=== PATIENT | male | born 1945 | race Caucasian/White ===

== ENCOUNTER 2022-06-19 13:28 | Inpatient (IN) | payer OTHER ==
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
[2022-06-20] MEDS ORDERED: HYDROCODONE/APAP 5/325 MG TAB PO PRN (21:51)
[2022-06-20] MEDS ORDERED: POLYETHYL GLY 3350 17 GM/DOSE PO PRN (21:51)
[2022-06-20] MEDS ORDERED: MELATONIN 3 MG TABLET PO PRN (21:57)
[2022-06-20] MEDS ORDERED: DOCUSATE NA/SENNA CONC 1 TAB PO PRN (21:57)
[2022-06-20] MEDS ORDERED: GLUCAGON 1 MG/VIAL IM PRN (21:58)
[2022-06-20] MEDS ORDERED: D50W 25 GM/50 ML SYRINGE IV PRN (21:58)
[2022-06-20] MEDS ORDERED: D10W 125 ML IV PRN (22:06)
[2022-06-21] MEDS: ACETAMINOPHEN 325 MG TABLET PO PRN (03:46)
[2022-06-21 04:08] LABS: Urine Bilirubin Negative (Negative); Urine Blood Negative (Negative); Urine Clarity Clear (Clear); Urine Color Yellow (Yellow); Urine Glucose Negative (Negative); Urine Protein Negative (Negative); Urine Urobilinogen 0.2 mg/dL (0.2-1.0); Urine pH 5.5 (5.0-7.0)
[2022-06-21 04:43] LABS: Urine Bacteria >50 /HPF (<20); Urine RBC <5 /HPF (None Seen)
[2022-06-21 06:58] LABS: Absolute Lymphocytes (CBC) 1.5 K/uL (0.7-4.9); Hematocrit 26.3 % (39.6-49.0); Lymphocytes % 16.9 % (15.3-44.8); MCV 82.7 fL (80-100); MPV 7.6 fL (7.6-11.3); RBC Red Blood Cell Count 3.18 M/uL (4.33-5.43)
[2022-06-21 07:15] LABS: Albumin 1.6 g/dL (3.4-5.0); Magnesium 2.3 mg/dL (1.8-2.4); Potassium 4.7 mmol/L (3.5-5.1); Prealbumin 11.9 mg/dL (20-40)
[2022-06-21] MEDS: INSULIN -REGULAR HUMAN 50 UNIT/0.5 ML ML SQ SCH ×4 (07:30→20:40)
[2022-06-21] MEDS: FUROSEMIDE 40 MG TABLET PO SCH (08:54)
[2022-06-21] MEDS: INSULIN GLARGINE 100 UNIT/ML SQ SCH (08:55)
[2022-06-21] MEDS: FINASTERIDE 5 MG TAB PO SCH (08:55)
[2022-06-21] MEDS: LOSARTAN POTASSIUM 50 MG TABLET PO SCH (08:55)
[2022-06-21] MEDS: hydroCHLOROthiazide 25 MG TAB PO SCH (08:55)
--- NOTE | 2022-06-21 09:51 | P.RH.PN ---
Estimated Length of Stay: 11 Expected Discharge Date: 07/01/22 Discharge Disposition Plan: Home Family Support: Yes Vital Signs: Last Vital Signs Temp 97.9 F 06/21/22 07:55 Pulse 69 06/21/22 08:55 Resp 15 06/21/22 07:55 BP 130/57 L 06/21/22 08:55 Pulse Ox 97 06/21/22 07:55 Laboratory: Laboratory Last Values WBC 8.8 K/uL (4.3-10.9) 06/21/22 06:34 RBC 3.18 M/uL (4.33-5.43) L 06/21/22 06:34 Hgb 9.0 g/dL (13.6-17.9) L 06/21/22 06:34 Hct 26.3 % (39.6-49.0) L 06/21/22 06:34 MCV 82.7 fL (80-100) 06/21/22 06:34 MCH 28.5 pg (27.0-35.0) 06/21/22 06:34 MCHC 34.4 g/dL (32.0-36.0) 06/21/22 06:34 RDW 14.1 % (12.1-15.2) 06/21/22 06:34 Plt Count 333 K/uL (152-406) 06/21/22 06:34 MPV 7.6 fL (7.6-11.3) 06/21/22 06:34 Neutrophils % 72.8 % (41.7-73.7) 06/21/22 06:34 Lymphocytes % 16.9 % (15.3-44.8) 06/21/22 06:34 Monocytes % 7.3 % (3.3-12.3) 06/21/22 06:34 Eosinophils % 2.3 % (0-4.4) 06/21/22 06:34 Basophils % 0.7 % (0-1.3) 06/21/22 06:34 Absolute Neutrophils 6.4 K/uL (1.8-8.0) 06/21/22 06:34 Absolute Lymphocytes 1.5 K/uL (0.7-4.9) 06/21/22 06:34 Absolute Monocytes 0.6 K/uL (0.1-1.3) 06/21/22 06:34 Absolute Eosinophils 0.2 K/uL (0-0.5) 06/21/22 06:34 Absolute Basophils 0.1 K/uL (0-0.5) 06/21/22 06:34 Sodium 138 mmol/L (136-145) 06/21/22 06:34 Potassium 4.7 mmol/L (3.5-5.1) 06/21/22 06:34 Chloride 104 mmol/L (98-107) 06/21/22 06:34 Carbon Dioxide 32 mmol/L (21-32) 06/21/22 06:34 Anion Gap 6.7 mEq/L (5.0-15.0) 06/21/22 06:34 BUN 45 mg/dL (7-18) H 06/21/22 06:34 Creatinine 1.07 mg/dL (0.55-1.3) 06/21/22 06:34 Est GFR (CKD-EPI) 71 ml/min (=/>90) L 06/21/22 06:34 Glucose 142 mg/dL (74-106) H 06/21/22 06:34 POC Glucose 137 mg/dL (65-120) H 06/21/22 07:09 Calcium 8.1 mg/dL (8.5-10.1) L 06/21/22 06:34 Magnesium 2.3 mg/dL (1.8-2.4) 06/21/22 06:34 Albumin 1.6 g/dL (3.4-5.0) L 06/21/22 06:34 Prealbumin 11.9 mg/dL (20-40) L 06/21/22 06:34 Urine Color Yellow (Yellow) 06/21/22 04:05 Urine Clarity Clear (Clear) 06/21/22 04:05 Urine pH 5.5 (5.0-7.0) 06/21/22 04:05 Ur Specific [place] 1.010 (1.005-1.030) 06/21/22 04:05 Glucose (UA)(Auto) Negative (Negative) 06/21/22 04:05 Urine Ketones Negative (Negative) 06/21/22 04:05 Urine Blood Negative (Negative) 06/21/22 04:05 Urine Nitrite Positive (Negative) H 06/21/22 04:05 Urine Bilirubin Negative (Negative) 06/21/22 04:05 Urine Urobilinogen 0.2 mg/dL (0.2-1.0) 06/21/22 04:05 Ur Leukocyte Esterase Negative (Negative) 06/21/22 04:05 Urine RBC <5 /HPF (None Seen) 06/21/22 04:05 Urine Red Cell Clumps Cancelled 06/20/22 22:25 Urine WBC <5 /HPF (<5) 06/21/22 04:05 Urine WBC Clumps Cancelled 06/20/22 22:25 Ur Squamous Epith Cells <5 /HPF (None Seen) 06/21/22 04:05 U Non-Squamous Epi Cells Cancelled 06/20/22 22:25 Ur Transition Epith Cell Cancelled 06/20/22 22:25 Ur Renal Epithelial Cell Cancelled 06/20/22 22:25 Calcium Carbonate Cryst Cancelled 06/20/22 22:25 Calcium Oxalate Crystal Cancelled 06/20/22 22:25 Leucine Crystals Cancelled 06/20/22 22:25 Cystine Crystals Cancelled 06/20/22 22:25 Uric Acid Crystals Cancelled 06/20/22 22:25 Triple Phos Crystals Cancelled 06/20/22 22:25 Tyrosine Crystals Cancelled 06/20/22 22:25 Unidentified Crystals Cancelled 06/20/22 22:25 Amorphous Crystals Cancelled 06/20/22 22:25 Urine Bacteria >50 /HPF (<20) H 06/21/22 04:05 Hyaline Casts Cancelled 06/20/22 22:25 Granular Casts Cancelled 06/20/22 22:25 Waxy Casts Cancelled 06/20/22 22:25 RBC Casts Cancelled 06/20/22 22:25 WBC Casts Cancelled 06/20/22 22:25 Urine Mucus Cancelled 06/20/22 22:25 Urine Trichomonas Cancelled 06/20/22 22:25 Ur Yeast w Hyphae Cancelled 06/20/22 22:25 Urine Yeast (Budding) Cancelled 06/20/22 22:25 Urine Sperm Cancelled 06/20/22 22:25 Ur Oval Fat Bodies Cancelled 06/20/22 22:25 Urine Total Protein Negative (Negative) 06/21/22 04:05 Urine Ascorbic Acid Cancelled 06/20/22 22:25 Urine Fat Cancelled 06/20/22 22:25 SARS-CoV-2 Rap RNA(RT-PCR) Negative (NEGATIVE) 06/20/22 21:45 Weight: 200 lb Wound Present: Yes Negative Pressure Wound Therapy Present: No Physician Update: Moderate assistance with shower, poor balance with no sensation in his feet and hands. Will encourage excellent blood sugar control. 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 Please see the Rehabilitation Signature page for all necessary signatures.
[2022-06-21] MEDS: ENOXAPARIN 40 MG/0.4 ML SQ SCH (10:41)
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
[2022-06-21] MEDS: GABAPENTIN 300 MG CAP PO SCH (19:21)
[2022-06-21] MEDS: ATORVASTATIN 40 MG TAB PO SCH (19:21)
[2022-06-21] MEDS: AMINO ACIDS/PROTEIN HYDROLYS 30 ML LIQUID.PKT PO SCH (19:21)
[2022-06-22] MEDS: ENOXAPARIN 40 MG/0.4 ML SQ SCH (07:01)
[2022-06-22] MEDS: INSULIN -REGULAR HUMAN 50 UNIT/0.5 ML ML SQ SCH ×4 (07:01→20:21)
[2022-06-22] MEDS: FUROSEMIDE 40 MG TABLET PO SCH (07:54)
[2022-06-22] MEDS: AMINO ACIDS/PROTEIN HYDROLYS 30 ML LIQUID.PKT PO SCH ×2 (07:55→20:00)
[2022-06-22] MEDS: FINASTERIDE 5 MG TAB PO SCH (07:55)
[2022-06-22] MEDS: hydroCHLOROthiazide 25 MG TAB PO SCH ×2 (08:00→09:37)
[2022-06-22] MEDS: LOSARTAN POTASSIUM 50 MG TABLET PO SCH ×3 (08:00→20:21)
[2022-06-22] MEDS: INSULIN GLARGINE 100 UNIT/ML SQ SCH (09:38)
[2022-06-22] MEDS: FE SULF/FA/VIT B COMP & C TAB PO SCH (09:38)
[2022-06-22] MEDS: FERROUS SULFATE 325 MG TAB PO SCH (09:38)
[2022-06-22] MEDS: GABAPENTIN 300 MG CAP PO SCH (20:20)
[2022-06-22] MEDS: ATORVASTATIN 40 MG TAB PO SCH (20:21)
[2022-06-23 06:16] LABS: Absolute Lymphocytes (CBC) 1.3 K/uL (0.7-4.9); Hematocrit 25.1 % (39.6-49.0); Lymphocytes % 14.9 % (15.3-44.8); MCV 83.5 fL (80-100); MPV 7.6 fL (7.6-11.3); RBC Red Blood Cell Count 3.01 M/uL (4.33-5.43)
[2022-06-23] MEDS: INSULIN -REGULAR HUMAN 50 UNIT/0.5 ML ML SQ SCH ×4 (07:30→20:31)
[2022-06-23] MEDS: ENOXAPARIN 40 MG/0.4 ML SQ SCH (07:44)
[2022-06-23] MEDS: AMINO ACIDS/PROTEIN HYDROLYS 30 ML LIQUID.PKT PO SCH ×2 (08:00→20:00)
[2022-06-23] MEDS: INSULIN GLARGINE 100 UNIT/ML SQ SCH ×2 (08:00→12:02)
[2022-06-23] MEDS: FE SULF/FA/VIT B COMP & C TAB PO SCH (08:57)
[2022-06-23] MEDS: FINASTERIDE 5 MG TAB PO SCH (08:57)
[2022-06-23] MEDS: FERROUS SULFATE 325 MG TAB PO SCH (08:57)
[2022-06-23] MEDS: LOSARTAN POTASSIUM 50 MG TABLET PO SCH ×2 (08:57→20:26)
[2022-06-23] MEDS: FUROSEMIDE 40 MG TABLET PO SCH (08:58)
[2022-06-23] MEDS: GABAPENTIN 300 MG CAP PO SCH (20:25)
[2022-06-23] MEDS: ATORVASTATIN 40 MG TAB PO SCH (20:26)
[2022-06-23] MEDS: ACETAMINOPHEN 325 MG TABLET PO PRN (23:06)
[2022-06-24] MEDS: INSULIN -REGULAR HUMAN 50 UNIT/0.5 ML ML SQ SCH ×4 (07:30→20:07)
[2022-06-24] MEDS: AMINO ACIDS/PROTEIN HYDROLYS 30 ML LIQUID.PKT PO SCH ×2 (08:00→20:00)
[2022-06-24] MEDS: FE SULF/FA/VIT B COMP & C TAB PO SCH (08:25)
[2022-06-24] MEDS: FUROSEMIDE 40 MG TABLET PO SCH (08:25)
[2022-06-24] MEDS: INSULIN GLARGINE 100 UNIT/ML SQ SCH (08:25)
[2022-06-24] MEDS: ENOXAPARIN 40 MG/0.4 ML SQ SCH (08:25)
[2022-06-24] MEDS: LOSARTAN POTASSIUM 50 MG TABLET PO SCH ×2 (08:26→20:06)
[2022-06-24] MEDS: FERROUS SULFATE 325 MG TAB PO SCH (08:26)
[2022-06-24] MEDS: FINASTERIDE 5 MG TAB PO SCH (08:26)
[2022-06-24 10:38] LABS: Absolute Lymphocytes (CBC) 1.1 K/uL (0.7-4.9); Hematocrit 26.4 % (39.6-49.0); Lymphocytes % 10.1 % (15.3-44.8); MCV 82.9 fL (80-100); MPV 7.1 fL (7.6-11.3); RBC Red Blood Cell Count 3.19 M/uL (4.33-5.43)
[2022-06-24 10:57] LABS: Potassium 3.8 mmol/L (3.5-5.1)
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
[2022-06-24] MEDS: CRANBERRY FRUIT EXTRACT 200 MG CAP PO SCH (20:06)
[2022-06-24] MEDS: ATORVASTATIN 40 MG TAB PO SCH (20:07)
[2022-06-24] MEDS: GABAPENTIN 300 MG CAP PO SCH (20:07)
[2022-06-24] MEDS: JUVEN PACKET PO SCH (20:08)
[2022-06-24] MEDS: GLUCERNA SHAKE 237 ML CAN PO SCH (20:08)
[2022-06-25] MEDS: INSULIN -REGULAR HUMAN 50 UNIT/0.5 ML ML SQ SCH ×4 (07:30→21:30)
[2022-06-25] MEDS: ENOXAPARIN 40 MG/0.4 ML SQ SCH (07:31)
[2022-06-25] MEDS: LOSARTAN POTASSIUM 50 MG TABLET PO SCH ×3 (08:00→21:32)
[2022-06-25] MEDS: FERROUS SULFATE 325 MG TAB PO SCH (08:03)
[2022-06-25] MEDS: INSULIN GLARGINE 100 UNIT/ML SQ SCH (08:03)
[2022-06-25] MEDS: FINASTERIDE 5 MG TAB PO SCH (08:03)
[2022-06-25] MEDS: FUROSEMIDE 40 MG TABLET PO SCH (08:03)
[2022-06-25] MEDS: GLUCERNA SHAKE 237 ML CAN PO SCH ×2 (08:04→21:40)
[2022-06-25] MEDS: JUVEN PACKET PO SCH ×2 (08:04→21:41)
[2022-06-25] MEDS: FE SULF/FA/VIT B COMP & C TAB PO SCH (08:04)
[2022-06-25] MEDS: CRANBERRY FRUIT EXTRACT 200 MG CAP PO SCH ×2 (08:04→21:33)
[2022-06-25] MEDS: AMINO ACIDS/PROTEIN HYDROLYS 30 ML LIQUID.PKT PO SCH ×2 (09:30→20:00)
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
[2022-06-25] MEDS: ATORVASTATIN 40 MG TAB PO SCH (21:32)
[2022-06-25] MEDS: GABAPENTIN 300 MG CAP PO SCH (21:32)
[2022-06-25] MEDS: HYDROCODONE/APAP 5/325 MG TAB PO PRN (23:36)
[2022-06-26 04:53] LABS: Absolute Lymphocytes (CBC) 1.5 K/uL (0.7-4.9); Hematocrit 26.6 % (39.6-49.0); Lymphocytes % 14.4 % (15.3-44.8); MCV 83.4 fL (80-100); MPV 7.5 fL (7.6-11.3); RBC Red Blood Cell Count 3.19 M/uL (4.33-5.43)
[2022-06-26 05:14] LABS: Albumin 1.7 g/dL (3.4-5.0); Potassium 4.1 mmol/L (3.5-5.1); Prealbumin 9.3 mg/dL (20-40)
[2022-06-26] MEDS: INSULIN -REGULAR HUMAN 50 UNIT/0.5 ML ML SQ SCH ×4 (07:30→20:18)
[2022-06-26] MEDS: ENOXAPARIN 40 MG/0.4 ML SQ SCH (07:52)
[2022-06-26] MEDS: FINASTERIDE 5 MG TAB PO SCH (07:52)
[2022-06-26] MEDS: CRANBERRY FRUIT EXTRACT 200 MG CAP PO SCH ×2 (07:52→19:45)
[2022-06-26] MEDS: FUROSEMIDE 40 MG TABLET PO SCH (07:53)
[2022-06-26] MEDS: FE SULF/FA/VIT B COMP & C TAB PO SCH (07:53)
[2022-06-26] MEDS: FERROUS SULFATE 325 MG TAB PO SCH (07:53)
[2022-06-26] MEDS: LOSARTAN POTASSIUM 50 MG TABLET PO SCH ×3 (08:00→19:46)
[2022-06-26] MEDS: GLUCERNA SHAKE 237 ML CAN PO SCH ×2 (09:19→19:56)
[2022-06-26] MEDS: INSULIN GLARGINE 100 UNIT/ML SQ SCH (09:20)
[2022-06-26] MEDS: JUVEN PACKET PO SCH ×2 (09:20→19:56)
[2022-06-26] MEDS ORDERED: LOSARTAN POTASSIUM 50 MG TABLET PO SCH (09:32)
[2022-06-26] MEDS: AMINO ACIDS/PROTEIN HYDROLYS 30 ML LIQUID.PKT PO SCH ×2 (09:37→19:48)
[2022-06-26] MEDS ORDERED: ACETAMINOPHEN 500 MG TAB PO PRN (16:37)
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
[2022-06-26] MEDS: HYDROCODONE/APAP 5/325 MG TAB PO PRN (19:47)
[2022-06-26] MEDS: GABAPENTIN 300 MG CAP PO SCH (19:48)
[2022-06-26] MEDS: ATORVASTATIN 40 MG TAB PO SCH (19:48)
[2022-06-27 04:16] LABS: Absolute Lymphocytes (CBC) 1.6 K/uL (0.7-4.9); Hematocrit 24.5 % (39.6-49.0); Lymphocytes % 16.4 % (15.3-44.8); MCV 83.7 fL (80-100); MPV 7.6 fL (7.6-11.3); RBC Red Blood Cell Count 2.93 M/uL (4.33-5.43)
[2022-06-27] MEDS: INSULIN -REGULAR HUMAN 50 UNIT/0.5 ML ML SQ SCH ×4 (07:30→19:37)
[2022-06-27] MEDS: LOSARTAN POTASSIUM 50 MG TABLET PO SCH ×2 (08:00→19:38)
[2022-06-27] MEDS: FUROSEMIDE 40 MG TABLET PO SCH (08:00)
[2022-06-27] MEDS: AMINO ACIDS/PROTEIN HYDROLYS 30 ML LIQUID.PKT PO SCH ×2 (08:00→19:40)
[2022-06-27] MEDS: INSULIN GLARGINE 100 UNIT/ML SQ SCH (09:24)
[2022-06-27] MEDS: ENOXAPARIN 40 MG/0.4 ML SQ SCH (09:24)
[2022-06-27] MEDS: FINASTERIDE 5 MG TAB PO SCH (09:25)
[2022-06-27] MEDS: FE SULF/FA/VIT B COMP & C TAB PO SCH (09:25)
[2022-06-27] MEDS: CRANBERRY FRUIT EXTRACT 200 MG CAP PO SCH ×2 (09:25→19:38)
[2022-06-27] MEDS: FERROUS SULFATE 325 MG TAB PO SCH (09:25)
[2022-06-27] MEDS: JUVEN PACKET PO SCH ×2 (09:27→19:40)
[2022-06-27] MEDS: GLUCERNA SHAKE 237 ML CAN PO SCH ×2 (09:27→19:40)
--- NOTE | 2022-06-27 09:55 | P.RH.PN ---
Estimated Length of Stay: 17 Expected Discharge Date: 07/07/22 Discharge Disposition Plan: Home Family Support: Yes Retirement Goal: Mobility, Transfers, Self Care Vital Signs: Last Vital Signs Temp 98.8 F 06/27/22 06:54 Pulse 61 06/27/22 08:00 Resp 16 06/27/22 06:54 BP 108/59 L 06/27/22 08:00 Pulse Ox 95 06/27/22 06:54 Laboratory: Laboratory Last Values WBC 9.8 K/uL (4.3-10.9) 06/27/22 04:00 RBC 2.93 M/uL (4.33-5.43) L 06/27/22 04:00 Hgb 8.4 g/dL (13.6-17.9) L 06/27/22 04:00 Hct 24.5 % (39.6-49.0) L 06/27/22 04:00 MCV 83.7 fL (80-100) 06/27/22 04:00 MCH 28.5 pg (27.0-35.0) 06/27/22 04:00 MCHC 34.1 g/dL (32.0-36.0) 06/27/22 04:00 RDW 14.4 % (12.1-15.2) 06/27/22 04:00 Plt Count 284 K/uL (152-406) 06/27/22 04:00 MPV 7.6 fL (7.6-11.3) 06/27/22 04:00 Neutrophils % 66.7 % (41.7-73.7) 06/27/22 04:00 Lymphocytes % 16.4 % (15.3-44.8) 06/27/22 04:00 Monocytes % 11.6 % (3.3-12.3) 06/27/22 04:00 Eosinophils % 4.5 % (0-4.4) H 06/27/22 04:00 Basophils % 0.8 % (0-1.3) 06/27/22 04:00 Absolute Neutrophils 6.5 K/uL (1.8-8.0) 06/27/22 04:00 Absolute Lymphocytes 1.6 K/uL (0.7-4.9) 06/27/22 04:00 Absolute Monocytes 1.1 K/uL (0.1-1.3) 06/27/22 04:00 Absolute Eosinophils 0.4 K/uL (0-0.5) 06/27/22 04:00 Absolute Basophils 0.1 K/uL (0-0.5) 06/27/22 04:00 Sodium 141 mmol/L (136-145) 06/26/22 04:37 Potassium 4.1 mmol/L (3.5-5.1) 06/26/22 04:37 Chloride 108 mmol/L (98-107) H 06/26/22 04:37 Carbon Dioxide 31 mmol/L (21-32) 06/26/22 04:37 Anion Gap 6.1 mEq/L (5.0-15.0) 06/26/22 04:37 BUN 45 mg/dL (7-18) H 06/26/22 04:37 Creatinine 1.02 mg/dL (0.55-1.3) 06/26/22 04:37 Est GFR (CKD-EPI) 75 ml/min (=/>90) L 06/26/22 04:37 Glucose 90 mg/dL (74-106) 06/26/22 04:37 POC Glucose 110 mg/dL (65-120) 06/27/22 07:44 Calcium 7.8 mg/dL (8.5-10.1) L 06/26/22 04:37 Magnesium 2.0 mg/dL (1.8-2.4) 06/26/22 04:37 Albumin 1.7 g/dL (3.4-5.0) L 06/26/22 04:37 Prealbumin 9.3 mg/dL (20-40) L 06/26/22 04:37 Urine Color Yellow (Yellow) 06/21/22 04:05 Urine Clarity Clear (Clear) 06/21/22 04:05 Urine pH 5.5 (5.0-7.0) 06/21/22 04:05 Ur Specific Royal 1.010 (1.005-1.030) 06/21/22 04:05 Glucose (UA)(Auto) Negative (Negative) 06/21/22 04:05 Urine Ketones Negative (Negative) 06/21/22 04:05 Urine Blood Negative (Negative) 06/21/22 04:05 Urine Nitrite Positive (Negative) H 06/21/22 04:05 Urine Bilirubin Negative (Negative) 06/21/22 04:05 Urine Urobilinogen 0.2 mg/dL (0.2-1.0) 06/21/22 04:05 Ur Leukocyte Esterase Negative (Negative) 06/21/22 04:05 Urine RBC <5 /HPF (None Seen) 06/21/22 04:05 Urine Red Cell Clumps Cancelled 06/20/22 22:25 Urine WBC <5 /HPF (<5) 06/21/22 04:05 Urine WBC Clumps Cancelled 06/20/22 22:25 Ur Squamous Epith Cells <5 /HPF (None Seen) 06/21/22 04:05 U Non-Squamous Epi Cells Cancelled 06/20/22 22:25 Ur Transition Epith Cell Cancelled 06/20/22 22:25 Ur Renal Epithelial Cell Cancelled 06/20/22 22:25 Calcium Carbonate Cryst Cancelled 06/20/22 22:25 Calcium Oxalate Crystal Cancelled 06/20/22 22:25 Leucine Crystals Cancelled 06/20/22 22:25 Cystine Crystals Cancelled 06/20/22 22:25 Uric Acid Crystals Cancelled 06/20/22 22:25 Triple Phos Crystals Cancelled 06/20/22 22:25 Tyrosine Crystals Cancelled 06/20/22 22:25 Unidentified Crystals Cancelled 06/20/22 22:25 Amorphous Crystals Cancelled 06/20/22 22:25 Urine Bacteria >50 /HPF (<20) H 06/21/22 04:05 Hyaline Casts Cancelled 06/20/22 22:25 Granular Casts Cancelled 06/20/22 22:25 Waxy Casts Cancelled 06/20/22 22:25 RBC Casts Cancelled 06/20/22 22:25 WBC Casts Cancelled 06/20/22 22:25 Urine Mucus Cancelled 06/20/22 22:25 Urine Trichomonas Cancelled 06/20/22 22:25 Ur Yeast w Hyphae Cancelled 06/20/22 22:25 Urine Yeast (Budding) Cancelled 06/20/22 22:25 Urine Sperm Cancelled 06/20/22 22:25 Ur Oval Fat Bodies Cancelled 06/20/22 22:25 Urine Total Protein Negative (Negative) 06/21/22 04:05 Urine Ascorbic Acid Cancelled 06/20/22 22:25 Urine Fat Cancelled 06/20/22 22:25 Stool Spec Quality Cancelled 06/24/22 10:32 Stool Consistency Cancelled 06/24/22 10:32 C. difficile Ag & Toxin Cancelled 06/24/22 10:32 SARS-CoV-2 Rap RNA(RT-PCR) Negative (NEGATIVE) 06/20/22 21:45 Weight: 189 lb 9.6 oz Wound Present: Yes Closed Surgical Incision Present: No Negative Pressure Wound Therapy Present: No Physician Update: Labs reviewed. Bed mobility SBA, sit to stand CGA, 10' with min noemi using RW, wheelchair 100' x 2 with CGA. Will go to [place] for follow- up. BP has been low. Mod noemi upper body dressing, Max noemi lower body dressing. Decreased AM lasix to 20 mg daily. Functional Improvement: Patient working to improve technique, and physical status, however continues to experience limitations, due to fluctuating BP. Summary: Patient's care plan and senior living goals have been reviewed and revised as necessary. Please see the Rehabilitation Signature page for all necessary signatures.
[2022-06-27] MEDS: HYDROCODONE/APAP 5/325 MG TAB PO PRN ×3 (16:14→23:50)
[2022-06-27] MEDS: GABAPENTIN 300 MG CAP PO SCH (19:37)
[2022-06-27] MEDS: ATORVASTATIN 40 MG TAB PO SCH (19:39)
[2022-06-28 06:35] LABS: Absolute Lymphocytes (CBC) 1.3 K/uL (0.7-4.9); Hematocrit 23.5 % (39.6-49.0); Lymphocytes % 13.6 % (15.3-44.8); MCV 82.5 fL (80-100); MPV 7.8 fL (7.6-11.3); RBC Red Blood Cell Count 2.85 M/uL (4.33-5.43)
[2022-06-28 06:51] LABS: Potassium 4.1 mmol/L (3.5-5.1)
[2022-06-28] MEDS: INSULIN -REGULAR HUMAN 50 UNIT/0.5 ML ML SQ SCH ×4 (07:20→20:13)
[2022-06-28] MEDS: ENOXAPARIN 40 MG/0.4 ML SQ SCH (07:22)
[2022-06-28] MEDS: AMINO ACIDS/PROTEIN HYDROLYS 30 ML LIQUID.PKT PO SCH ×2 (08:00→20:00)
[2022-06-28] MEDS: FUROSEMIDE 20 MG TABLET PO SCH ×2 (08:00→11:59)
[2022-06-28] MEDS: LOSARTAN POTASSIUM 50 MG TABLET PO SCH (08:00)
[2022-06-28] MEDS: CRANBERRY FRUIT EXTRACT 200 MG CAP PO SCH ×2 (09:15→20:11)
[2022-06-28] MEDS: FINASTERIDE 5 MG TAB PO SCH (09:15)
[2022-06-28] MEDS: FE SULF/FA/VIT B COMP & C TAB PO SCH (09:15)
[2022-06-28] MEDS: FERROUS SULFATE 325 MG TAB PO SCH (09:15)
[2022-06-28] MEDS: INSULIN GLARGINE 100 UNIT/ML SQ SCH (09:18)
[2022-06-28] MEDS: GLUCERNA SHAKE 237 ML CAN PO SCH ×2 (09:18→20:12)
[2022-06-28] MEDS: JUVEN PACKET PO SCH ×2 (09:18→20:12)
[2022-06-28] MEDS: PIPER TAZO 3.375 GM in NA CHLORIDE 0.9% 100 ML IV SCH (17:14)
[2022-06-28] MEDS: HYDROCODONE/APAP 5/325 MG TAB PO PRN (18:43)
[2022-06-28] MEDS: GABAPENTIN 300 MG CAP PO SCH (20:11)
[2022-06-28] MEDS: ATORVASTATIN 40 MG TAB PO SCH (20:11)
[2022-06-28] MEDS: MIDODRINE HCL 5 MG TABLET PO SCH (20:11)
[2022-06-29] MEDS: PIPER TAZO 3.375 GM in NA CHLORIDE 0.9% 100 ML IV SCH ×3 (00:48→16:44)
[2022-06-29 06:23] LABS: Absolute Lymphocytes (CBC) 1.2 K/uL (0.7-4.9); Hematocrit 22.8 % (39.6-49.0); Lymphocytes % 10.7 % (15.3-44.8); MPV 7.9 fL (7.6-11.3); RBC Red Blood Cell Count 2.78 M/uL (4.33-5.43)
[2022-06-29 06:41] LABS: Potassium 4.3 mmol/L (3.5-5.1)
[2022-06-29] MEDS: ENOXAPARIN 40 MG/0.4 ML SQ SCH (07:17)
[2022-06-29] MEDS: INSULIN -REGULAR HUMAN 50 UNIT/0.5 ML ML SQ SCH ×4 (07:30→19:39)
[2022-06-29] MEDS: CRANBERRY FRUIT EXTRACT 200 MG CAP PO SCH ×2 (07:53→19:39)
[2022-06-29] MEDS: INSULIN GLARGINE 100 UNIT/ML SQ SCH (07:53)
[2022-06-29] MEDS: FE SULF/FA/VIT B COMP & C TAB PO SCH (07:53)
[2022-06-29] MEDS: FINASTERIDE 5 MG TAB PO SCH (07:54)
[2022-06-29] MEDS: FUROSEMIDE 20 MG TABLET PO SCH (07:54)
[2022-06-29] MEDS: FERROUS SULFATE 325 MG TAB PO SCH (07:54)
[2022-06-29] MEDS: MIDODRINE HCL 5 MG TABLET PO SCH ×2 (07:54→19:39)
[2022-06-29] MEDS: JUVEN PACKET PO SCH ×2 (07:55→19:40)
[2022-06-29] MEDS: GLUCERNA SHAKE 237 ML CAN PO SCH ×2 (07:55→19:40)
[2022-06-29] MEDS: AMINO ACIDS/PROTEIN HYDROLYS 30 ML LIQUID.PKT PO SCH ×2 (07:56→19:40)
[2022-06-29] MEDS ORDERED: VANCOMYCIN 2.25 GM in NA CHLORIDE 0.9% 500 ML IVPB ONE (13:00)
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
--- NOTE | 2022-06-29 15:46 | RAD REPORT ---
EXAM DESCRIPTION: RAD - Chest Single View - 06/29/2022 3:14 pm CLINICAL HISTORY: PICC line placement (right side) COMPARISON: No comparisons FINDINGS: Portable chest was obtained following placement of a right upper extremity PICC line. The catheter tip projects over the SVC.
[2022-06-29] MEDS: ATORVASTATIN 40 MG TAB PO SCH (19:39)
[2022-06-29] MEDS: GABAPENTIN 300 MG CAP PO SCH (19:39)
[2022-06-30] MEDS: PIPER TAZO 3.375 GM in NA CHLORIDE 0.9% 100 ML IV SCH ×3 (00:23→16:53)
[2022-06-30] MEDS: SODIUM CHLORIDE 0.9% 10ML INJ IV SCH ×2 (07:07→19:31)
[2022-06-30] MEDS: ENOXAPARIN 40 MG/0.4 ML SQ SCH (07:08)
[2022-06-30] MEDS: INSULIN -REGULAR HUMAN 50 UNIT/0.5 ML ML SQ SCH ×4 (07:30→19:40)
[2022-06-30] MEDS: INSULIN GLARGINE 100 UNIT/ML SQ SCH (08:07)
[2022-06-30] MEDS: CRANBERRY FRUIT EXTRACT 200 MG CAP PO SCH ×2 (08:07→19:31)
[2022-06-30] MEDS: FUROSEMIDE 20 MG TABLET PO SCH (08:08)
[2022-06-30] MEDS: MIDODRINE HCL 5 MG TABLET PO SCH ×2 (08:08→19:31)
[2022-06-30] MEDS: FERROUS SULFATE 325 MG TAB PO SCH (08:08)
[2022-06-30] MEDS: FE SULF/FA/VIT B COMP & C TAB PO SCH (08:08)
[2022-06-30] MEDS: FINASTERIDE 5 MG TAB PO SCH (08:08)
[2022-06-30] MEDS: AMINO ACIDS/PROTEIN HYDROLYS 30 ML LIQUID.PKT PO SCH ×2 (08:09→19:32)
[2022-06-30] MEDS: JUVEN PACKET PO SCH ×2 (08:09→19:32)
[2022-06-30] MEDS: GLUCERNA SHAKE 237 ML CAN PO SCH ×2 (08:09→19:32)
[2022-06-30 11:28] LABS: Absolute Lymphocytes (CBC) 1.5 K/uL (0.7-4.9); Hematocrit 22.7 % (39.6-49.0); Lymphocytes % 12.7 % (15.3-44.8); MPV 8.1 fL (7.6-11.3); RBC Red Blood Cell Count 2.77 M/uL (4.33-5.43)
[2022-06-30 11:37] LABS: Potassium 4.7 mmol/L (3.5-5.1)
[2022-06-30] MEDS ORDERED: VANCOMYCIN 1.5 GM in NA CHLORIDE 0.9% 500 ML IVPB SCH (13:00)
[2022-06-30] MEDS: VANCOMYCIN 1.5 GM in NA CHLORIDE 0.9% 500 ML IVPB SCH (15:51)
[2022-06-30] MEDS: ATORVASTATIN 40 MG TAB PO SCH (19:31)
[2022-06-30] MEDS: GABAPENTIN 300 MG CAP PO SCH (19:31)
[2022-06-30] MEDS: HYDROCODONE/APAP 5/325 MG TAB PO PRN (19:32)
[2022-06-30] MEDS ORDERED: NA CHLORIDE 0.9% 250 ML ONE (19:45)
[2022-07-01] MEDS: PIPER TAZO 3.375 GM in NA CHLORIDE 0.9% 100 ML IV SCH ×3 (00:08→17:16)
[2022-07-01] MEDS: INSULIN -REGULAR HUMAN 50 UNIT/0.5 ML ML SQ SCH ×4 (07:30→19:18)
[2022-07-01] MEDS: ENOXAPARIN 40 MG/0.4 ML SQ SCH (07:33)
[2022-07-01] MEDS: SODIUM CHLORIDE 0.9% 10ML INJ IV SCH ×2 (08:00→18:59)
[2022-07-01] MEDS: AMINO ACIDS/PROTEIN HYDROLYS 30 ML LIQUID.PKT PO SCH ×2 (08:00→19:12)
[2022-07-01] MEDS: FUROSEMIDE 20 MG TABLET PO SCH (08:42)
[2022-07-01] MEDS: FE SULF/FA/VIT B COMP & C TAB PO SCH (08:42)
[2022-07-01] MEDS: FERROUS SULFATE 325 MG TAB PO SCH (08:43)
[2022-07-01] MEDS: INSULIN GLARGINE 100 UNIT/ML SQ SCH (08:43)
[2022-07-01] MEDS: FINASTERIDE 5 MG TAB PO SCH (08:43)
[2022-07-01] MEDS: CRANBERRY FRUIT EXTRACT 200 MG CAP PO SCH ×2 (08:43→19:08)
[2022-07-01] MEDS: MIDODRINE HCL 5 MG TABLET PO SCH ×2 (08:43→19:08)
[2022-07-01] MEDS: GLUCERNA SHAKE 237 ML CAN PO SCH ×2 (09:21→19:12)
[2022-07-01] MEDS: JUVEN PACKET PO SCH ×2 (09:21→19:12)
[2022-07-01 15:23] LABS: Absolute Lymphocytes (CBC) 1.8 K/uL (0.7-4.9); Hematocrit 25.8 % (39.6-49.0); Lymphocytes % 13.5 % (15.3-44.8); MCV 82.1 fL (80-100); MPV 7.9 fL (7.6-11.3); RBC Red Blood Cell Count 3.14 M/uL (4.33-5.43)
[2022-07-01 15:37] LABS: Potassium 4.6 mmol/L (3.5-5.1)
[2022-07-01] MEDS: VANCOMYCIN 1.5 GM in NA CHLORIDE 0.9% 500 ML IVPB SCH (16:00)
[2022-07-01] MEDS ORDERED: VANCOMYCIN 1.75 GM in NA CHLORIDE 0.9% 500 ML IVPB SCH (17:00)
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
--- NOTE | 2022-07-01 17:20 | PN ---
Subjective: The patient is here with necrotic bone lesions to his feet. The patient also grew MRSA in his blood. Nursing team informed me earlier today. The patient is also on vancomycin and Zosyn a t this time. Vital signs reviewed. No fever. The patient denies any headache, nausea, vomiting, ch est pain, abdominal pain, constipation, or diarrhea. Feels slightly better since I saw him Friday. Objective: Lungs: Clear to auscultation. Heart: S1, S2. Regular. Abdomen: Soft. Bowel sounds present. Extremity: Trace edema. Bilateral feet necrotic changes, 50% on each side noted, right worse and le ft. Laboratory Data: Reviewed. Assessment And Plan: Diabetic neuropathy and bone lesions to both plantar area of feet, 50% plus nec rotic tissue at this time. We will recommend to apply Santyl and polyethylene glycol dressing, which has been recommended by the surgical team, cover with gauze and keep it elevated when possible. In tiate transfer to [facility] if insurance allows. Otherwise, we will continue IV antibiotic an d wound care at this facility meanwhile. NF/MODL Voice ID: [id number] Report ID: [id number]
[2022-07-01 18:15] VITALS: O2SAT 95
[2022-07-01] MEDS: GABAPENTIN 300 MG CAP PO SCH (19:08)
[2022-07-01] MEDS: ATORVASTATIN 40 MG TAB PO SCH (19:08)
[2022-07-01 19:37] VITALS: BP 155/69; TEMP 98.3
[2022-07-02] MEDS ORDERED: COLLAGENASE 30 GM OINTMENT TOP SCH (08:00)
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
== END 2022-07-01 20:30 | DRG 949 ==
LOC: 5TH 06-20 21:08
PROVIDERS: ADMIT Psychiatry & Neurology Neurology with Special Qualifications in Child Neurology; ATTEND Psychiatry & Neurology Neurology with Special Qualifications in Child Neurology
PROC: 02HV33Z Insertion of Infusion Device into Superior Vena Cava, Percutaneous Approach (ICD-10-PCS; principal; 2022-06-29)
DX: Z48.817 Encounter for surgical aftercare following surgery on the skin and subcutaneous tissue (principal); A41.02 Sepsis due to Methicillin resistant Staphylococcus aureus; E11.52 Type 2 diabetes mellitus with diabetic peripheral angiopathy with gangrene; I96 Gangrene, not elsewhere classified; E11.42 Type 2 diabetes mellitus with diabetic polyneuropathy; I11.0 Hypertensive heart disease with heart failure; I50.9 Heart failure, unspecified; E78.5 Hyperlipidemia, unspecified; Z86.73 Personal history of transient ischemic attack (TIA), and cerebral infarction without residual deficits; Z20.822 Contact with and (suspected) exposure to COVID-19; Z91.040 Latex allergy status
CPT/HCPCS: 36415; 36569; 71045; 80048; 80202; 81001; 82040; 82274; 82947; 83605; 83615; 83735; 84134; 84145; 85025; 87040; 87070; 87075; 87077; 87086; 87088; 87186; 87205; 97110; 97112; 97116; 97161; 97165; 97530; 97542; J1650; J1815; J2543; J3370; J7040; J7050; U0003